=== PATIENT | female | born 1990 | race Caucasian/White ===

== ENCOUNTER 2019-03-29 20:36 | Emergency (ER) | payer OTHER ==
[~2019-03-29] VITALS: Wt 59.1 kg
[2019-03-29 20:58] VITALS: BP 120/61; PULSE 71; RESP 18
--- NOTE | 2019-03-29 23:37 | ERD ---
ER Documentation Chief Complaint Chief Complaint glass door broke while taking shower x 1 hour ago, c/o abrasions hand/legs HPI Patient is a 28-year-old female presents ER for concerns of abrasions on her right hand and right posterior leg after the shower glass door broke. Injury occurred 1 hour prior to arrival. Patient states that she does have some finger pain. Patient states her last tetanus shot was 2 years ago. Patient is able to move all extremities and digits done any difficulty. Patient able to ambulate without difficulty. R hand dominant. ROS All systems reviewed and are negative except as per history of present illness. PMhx/Soc Medical and Surgical Hx: pt denies Medical Hx, pt denies Surgical Hx Hx Alcohol Use: No Hx Substance Use: No Hx Tobacco Use: No Smoking Status: Never smoker FmHx Family History: No diabetes Physical Exam Vitals Vital Signs Date Temp Pulse Resp B/P (MAP) Pulse Ox O2 O2 Flow FiO2 Time Delivery Rate 03/29/19 97.9 71 18 120/61 98 20:58 (80) Physical Exam GENERAL: Well-developed, well-nourished female. Appears in no acute distress. HEAD: Normocephalic, atraumatic. EYES: Pupils are equally reactive bilaterally. EOMs grossly intact. No conjunctival erythema. ENT: Moist mucous membranes. No uvula deviation. No kissing tonsils. NECK: Supple. No meningismus. Normal range of motion of the neck. LUNG: No respiratory distress EXTREMITIES: Equal pulses bilaterally. No peripheral clubbing, cyanosis or edema. No unilateral leg swelling. NEUROLOGIC: Alert and oriented. Moving all four extremities without any difficulty. Normal speech. Steady gait. SKIN: Superficial abrasions noted to the R posterior leg and on the right hand. No active bleeding at this time. R HAND: Normal range of motion of all digits. Mild swelling and pain to 3rd and 4th digits. Patient able to bend at MCP, PIP and DIP joints without difficulty. Normal pulses. Procedures/MDM ED COURSE: The patient was stable throughout ED course. I kept the patient and/or family informed of laboratory and diagnostic imaging results throughout the ED course. DIAGNOSTIC IMAGING: Read by radiologist. Patient: MEETA MORA : 1990 Age: 28 Sex: F [id number] DOS: 03/29/19 2236 Ordering MD: ARTHUR JENNINGS PA-C Location: FT Room/Bed: PROCEDURE: X-ray right hand. CLINICAL INDICATION: Right hand pain status post breaking glass. TECHNIQUE: AP, lateral and oblique views of the right hand. COMPARISON: None. FINDINGS: No acute fracture or dislocation. The soft tissues are unremarkable retained radiopaque foreign material in the soft tissues of the right hand. IMPRESSION: No acute fracture or retained radiopaque foreign material in the soft tissues of the right hand. RPTAT: UU Physician Ledy Date Time Electronically viewed and signed by Physician Ledy on 03/30/2019 01:08 RS/ CC: ARTHUR JENNINGS PA-C [id number] MEDICAL DECISION MAKING: Patient is a 28-year-old female presents ER for concerns of right hand and right posterior leg abrasions after glass shower door broke. Vital signs were reviewed. Patient is afebrile. Patient was not hypoxic. Patient was hemodynamically stable. Patient's tetanus vaccine is up-to-date. Patient did complain of some pain to her right hand that x-ray imaging were obtained. See formal report above. No evidence of foreign body. Patient's wounds were cleaned by video game technician and bandaged. Of note, patient left without any discharge paperwork or discussion of xray findings. Patient was stable prior to her elopement. Departure Diagnosis: Primary Impression: Abrasions of multiple sites Additional Impression: Hand pain Laterality: right Qualified Codes: M79.641 - Pain in right hand Patient Instructions: Abrasion Referrals: COMMUNITY CLINICS YOU HAVE RECEIVED A MEDICAL SCREENING EXAM AND THE RESULTS INDICATE THAT YOU DO NOT HAVE A CONDITION THAT REQUIRES URGENT TREATMENT IN THE EMERGENCY DEPARTMENT. FURTHER EVALUATION AND TREATMENT OF YOUR CONDITION CAN WAIT UNTIL YOU ARE SEEN IN YOUR DOCTORS OFFICE WITHIN THE NEXT 1-2 DAYS. IT IS YOUR RESPONSIBILITY TO MAKE AN APPOINTMENT FOR FOLOW-UP CARE. IF YOU HAVE A PRIMARY DOCTOR --you should call your primary doctor and schedule an appointment IF YOU DO NOT HAVE A PRIMARY DOCTOR YOU CAN CALL OUR PHYSICIAN REFERRAL HOTLINE AT IF YOU CAN NOT AFFORD TO SEE A PHYSICIAN YOU CAN CHOSE FROM THE FOLLOWING COMMU NITY [facility] [address] [facility] [address] [facility] [address] [facility] [address] [facility] [address] [facility]. [facility] [address] [facility]. [facility] YOU HAVE RECEIVED A MEDICAL SCREENING EXAM AND THE RESULTS INDICATE THAT YOU DO NOT HAVE A CONDITION THAT REQUIRES URGENT TREATMENT IN THE EMERGENCY DEPARTMENT. FURTHER EVALUATION AND TREATMENT OF YOUR CONDITION CAN WAIT UNTIL YOU ARE SEEN IN YOUR DOCTORS OFFICE WITHIN THE NEXT 1-2 DAYS. IT IS YOUR RESPONSIBILITY TO MAKE AN APPOINTMENT FOR FOLOW-UP CARE. IF YOU HAVE A PRIMARY DOCTOR --you should call your primary doctor and schedule and appointment IF YOU DO NOT HAVE A PRIMARY DOCTOR YOU CAN CALL OUR PHYSICIAN REFERRAL HOTLINE AT . IF YOU CAN NOT AFFORD TO SEE A PHYSICIAN YOU CAN CHOSE FROM THE FOLLOWING [facility] INSTITUTIONS: [facility] [address] [place] [address] [facility] [address] [place] [address] [facility] [address] [place] [address] ARTHUR JENNINGS PA-C March 29, 2019 23:37
== END 2019-03-30 05:47 | disposition left against medical advice (07) ==
LOC: FTE 20:36
DX: S60.511A Abrasion of right hand, initial encounter (principal); S80.811A Abrasion, right lower leg, initial encounter; W25.XXXA Contact with sharp glass, initial encounter; Y92.9 Unspecified place or not applicable
CPT/HCPCS: 73130; Z7502